=== PATIENT | female | born 1985 | race Caucasian/White ===

== ENCOUNTER 2018-05-19 11:28 | Day surgery (SDC) | payer OTHER ==
[2018-05-19] MEDS ORDERED: BUPIVACAINE 0.5%-EPI 1:200000 PF 30 ML VIAL ONE (11:50)
[2018-05-19] MEDS ORDERED: LACTATED RINGERS 1,000 ML IV ONE (11:51)
[2018-05-19] MEDS ORDERED: SILVER NITRATE APPLICATOR TOP ONE ×2 (11:51→14:07)
--- NOTE | 2018-05-19 12:05 | ANESTHESIA ---
Pre-Anesthesia VS, & Labs - NPO >8 hours - Is Patient ?: No <ChristinacecilioDonnOpal E - Last Filed: 05/19/18 12:41> - NPO >8 hours <Luis Lin - Last Filed: 05/20/18 07:33> - Diagnosis desires sterilization (Opal Avila) desires sterilization (Luis Lin) - Procedure laparoscopic salpingectomy (Opal Avila) laparoscopic salpingectomy (Luis Lin) Vital Signs: Temp Pulse Resp BP Pulse Ox 36.4 C L 77 12 126/79 97 05/19/18 11:53 05/19/18 11:53 05/19/18 11:53 05/19/18 11:53 05/19/18 11:53 Height 5 ft 10.08 in Weight (kg) 77.3 kg Home Medications and Allergies <Opal Avila Zoey - Last Filed: 05/19/18 12:41> <Luis Lin - Last Filed: 05/20/18 07:33> Home Medications: Ambulatory Orders No Known Home Medications 05/11/18 No Known Home Medications 05/11/18 Allergies/Adverse Reactions: Allergies Allergy/AdvReac Type Severity Reaction Status Date / Time No Known Drug Allergies Allergy Verified 05/11/18 14:48 Anes History & Medical History - Medical History Smoking Status: Never smoker <Opal Avila - Last Filed: 05/19/18 12:41> - Anesthetic History Anesthesia Complications: reports: No previous complications Family history of Anesthesia Complications: Denies Family history of Malignant Hyperthermia: Denies - Medical History Cardiovascular: reports: None Pulmonary: reports: None Gastrointestinal: reports: None Urinary: reports: None Musculoskeletal: reports: None Endocrine/Autoimmune: reports: None Skin: reports: None - Surgical History Gynecologic: section Orthopedic: Other <Luis Lin - Last Filed: 05/20/18 07:33> Exam Mallampati classification: I Respiratory: Lungs clear Cardiovascular: Regular rate Mental/Cognitive Status: Alert/Oriented X3 <ChristinacecilioDonnOpal E - Last Filed: 05/19/18 12:41> General: Alert Dental: WNL Mouth Openin Fingerbreadth Neck Mobility: Normal Mallampati classification: I Thyromental Distance: greater than 6 cm Respiratory: Lungs clear, Normal breath sounds, No respiratory distress, No accessory muscle use Cardiovascular: Regular rate, Normal S1, Normal S2, No murmurs <Luis Lin - Last Filed: 05/20/18 07:33> Plan Consent for Procedure(s) Verified and Reviewed: Yes Code Status: Attempt Resuscitation ASA classification: 1-Healthy patient Is this case an emergency?: No <Opal Avila - Last Filed: 05/19/18 12:41> Anesthesia Type: General Consent for Procedure(s) Verified and Reviewed: Yes Code Status: Attempt Resuscitation ASA classification: 1-Healthy patient Is this case an emergency?: No <Luis Lin - Last Filed: 05/20/18 07:33>
[2018-05-19 12:21] LABS: HCG UR QUAL NEGATIVE
[2018-05-19] MEDS ORDERED: BUPIVACAINE 0.5%-EPI 1:200000 PF 30 ML VIAL SUBQ ONE ×2 (13:12)
[2018-05-19] MEDS ORDERED: HYDROcod/ACETAM 10 MG/325 MG TABLET PO PRN (13:51)
[2018-05-19] MEDS ORDERED: SILVER SULFADIAZINE CREAM 25 GM TUBE TOP ONE (13:51)
--- NOTE | 2018-05-19 13:55 | OPERATIVE REPORT ---
Operative Report - General Procedure Date: 05/19/18 Planned Procedure: laparoscopic bilateral salpingectomy Pre-Op Diagnosis: Undesired fertility Procedure Performed: Same as above Fulguration of endometriosis - Procedure Note Primary Surgeon: Rossy Secondary Surgeon: Spike Anesthesia Provider: [place] Anesthesia Technique: General ET tube Pathology: Portions of both fallopian tubes IV Fluids (mL): 900 Estimated Blood Loss (mL): 10 Urine Output (mL): 300 Indications: Undesired fertility Findings: Examination under anesthesia revealed a normal-sized anteverted uterus and normal adnexa Operative findings: The uterus, tubes and ovaries were all within normal limits. The lower uterine segment was densely adherent to the anterior abdominal wall. There were hemosiderin deposits in the posterior cul-de-sac and a Clifton window in the right side of the posterior cul-de-sac. The appendix, the liver edge, and gallbladder all appeared normal. There was no other evidence of obvious endometriosis. - Other Other Information/Narrative: Procedure: The patient was taken to the operating room, where general endotracheal anest hesia was administered without difficulty. She was then positioned in the low dorsal lithotomy position with her lower extremities in Yellow Fin stirrups. Vagina, perineum, and abdomen were then prepped and draped in a sterile fashion. Procedure Time-Out was then performed. An exam under anesthesia was performed and a sterile bivalve speculum was then inserted into the vagina. A tenaculum was placed at the anterior lip of the cervix, then the cervix was serially dilated until a Hulka uterine manipulator could be gently advanced. The tenaculum and speculum were then removed from the vagina. Attention was then turned to the laparoscopy. 0.5% Marcaine was injected infraumbilically, then a 7-mm horizontal skin incision made. A Veress needle was then inserted through the anterior layers of the abdominal wall with saline drop test suggesting intraperitoneal placement. Carbon dioxide gas insufflation was then performed with appropriate opening pressures noted. Once 2 L of gas was instilled, a 0-degree, 5 mm laparoscope was inserted into a 5 mm trocar and passed through the anterior layers of the abdominal wall using Optiview technique. The abdomen was visualized, then 2 additional ports placed at the right and left lower quadrants, first instilling local anesthetic, then placing 5 mm ports. The patient was placed into Trendelenberg and bowel swept out of the cul-de-sac. The right, distal fallopian tube was then grasped and pulled anteriorly and superiorly. The tubo-ovarian ligament was then crossclamped, cauterized, and cut using the PlasmaKinetic, then the mesosalpinx was crossclamped, cauterized, and cut, completely the right fallopian tube from the uterus at the cornual region. The right fallopian tube was then removed from the abdomen. The left distal fallopian tube was then grasped and pulled anteriorly and superiorly. The tubo-ovarian pedicle was then crossclamped, cauterized, and cut, the distal left fallopian tube from the left ovary. The mesosalpinx was then serially cauterized and cut until the cornual region was reached, then the fallopian tube was crossclamped, cauterized and cut. The surgical sites appeared hemostatic. The left fallopian tube was removed from the abdomen. At this point the laparoscopy was deemed complete, and all trochars were removed from the abdomen. The carbon dioxide gas was then allowed to escape. The incisions were then closed with 4-0 Monocryl in a subcuticular fashion followed by Dermabond skin adhesive. The tenaculum was then removed from the posterior lip of the cervix. The sterile bivalve speculum was then reinserted to ensure that the tenaculum sites were hemostatic. No bleeding was noted, and the speculum was then removed. At this point the procedure was deemed complete. The patient was then replaced supine, awakened, extubated, and transferred to the PACU in stable condition.
[2018-05-19] MEDS ORDERED: DEXAMETHASONE 4 MG/ML VIAL IVP ONE (14:04)
[2018-05-19] MEDS ORDERED: KETOROLAC 30 MG/ML VIAL IVP ONE (14:04)
[2018-05-19] MEDS ORDERED: MIDAZOLAM 2 MG/2 ML VIAL IVP ONE (14:04)
[2018-05-19] MEDS ORDERED: ROCURONIUM 50 MG/5 ML VIAL IVP ONE (14:04)
[2018-05-19] MEDS ORDERED: LIDOCAINE-MPF 2% 5 ML VIAL IM ONE (14:04)
[2018-05-19] MEDS ORDERED: fentaNYL 100 MCG/2 ML VIAL IVP ONE (14:04)
[2018-05-19] MEDS ORDERED: ONDANSETRON 4 MG/2 ML VIAL IVP ONE (14:04)
[2018-05-19] MEDS ORDERED: ACETAMINOPHEN 1,000 MG/100 ML 100 ML IV ONE (14:04)
[2018-05-19] MEDS ORDERED: PROPOFOL 200 MG/20 ML VIAL IVP ONE (14:04)
[2018-05-19] MEDS ORDERED: HYDROmorphone 0.5 MG/0.5 ML SYRINGE ONE (14:16)
[2018-05-19 15:18] VITALS: BP 141/77
== END 2018-05-19 11:29 | disposition home or self-care (01) ==
LOC: SDS 11:28
PROVIDERS: ATTEND Obstetrics & Gynecology
PROC: 0UT74ZZ Resection of Bilateral Fallopian Tubes, Percutaneous Endoscopic Approach (ICD-10-PCS; principal; 2018-05-19 12:30)
DX: Z30.2 Encounter for sterilization (principal); N80.3 Endometriosis of pelvic peritoneum
CPT/HCPCS: 58661; 81025; A9270; J0131; J1170; J7120